=== PATIENT | female | born 2000 | race Caucasian/White ===

== ENCOUNTER 2019-05-12 09:11 | Emergency (ER) | payer MEDICAID ==
[~2019-05-12] VITALS: Ht 165.1 cm; Wt 62.9 kg
[~2019-05-12 09:11] MED LIST: ACET-78 PO; DOCU100C37 PO; IBUP-1780 PO; OXC5T PO; PREN1TAB79 PO
[2019-05-12] MEDS ORDERED: NS IV 1000 ML 1,000 ML IV SCH ×2 (09:30→09:45)
[2019-05-12] MEDS ORDERED: ONDANSETRON 4 MG/2 ML (SDV) Z0FRAN IVP ONE (09:30)
[2019-05-12 09:34] LABS: BACTERIA,URINE MODERATE /HPF; BILIRUBIN,URINE NEGATIVE (NEGATIVE); CLARITY,URINE CLEAR; COLOR,URINE YELLOW; GLUCOSE, URINE (UA) NEGATIVE (NEGATIVE); KETONES,URINE NEGATIVE (NEGATIVE); LEUKOCYTE ESTERASE ,URINE 1+ (NEGATIVE); NITRITE,URINE NEGATIVE (NEGATIVE); PROTEIN,URINE NEGATIVE (NEGATIVE); WBC,URINE 50-100 /HPF
[2019-05-12] MEDS ORDERED: cefTRIAXone FOR IV USE 1,000 MG in WATER (STERILE) FOR INJECTION 10 ML IV ONE (09:45)
--- NOTE | 2019-05-12 10:32 | ED General ---
General Chief Complaint: Abdominal/GI Problems Stated Complaint: VOMITING Nursing Triage Note: Patient presents to ED reporting sent from [facility] for inability to get an IV start. Pt is vomiting x 4 days and is . LMP 03/26/19 Nursing Sepsis Screen: No Definite Risk Source of Information: Patient History of Present Illness Date Seen by Provider: May 12, 2019 Time Seen by Provider: 09:30 Initial Comments Patient is a 18-year-old female who comes to the emergency department today complaining of nausea and vomiting in . The patient is uncertain how many weeks gestation she is. She reports that her last menstrual cycle was in March and she estimates around 6 weeks gestation. Patient was evaluated at a urgent care 2 weeks earlier and she reports her quantitative hCG to be 3000 at that time. Today, she presents with 4 days of persistent nausea and vomiting. Inability to hold down any food or fluids. She does not have a fever. No pelvic pain. No respiratory symptoms. No vaginal bleeding, discharge, or loss of fluid. Allergies and Home Medications Allergies Coded Allergies: No Known Drug Allergies (Unverified , 10/31/18) Home Medications Acetaminophen 500 Mg Tablet, 1,000 MG PO Q6HR Prescribed by: LAVELLE THURMAN on 11/01/18921 Docusate Sodium 100 Mg Capsule, 100 MG PO BID Prescribed by: LAVELLE THURMAN on 11/01/18921 Ibuprofen 800 Mg Tablet, 800 MG PO Q8HR Prescribed by: LAVELLE THURMAN on 11/01/18921 Metoclopramide HCl 10 Mg Tablet, 10 MG PO TID Prescribed by: FRED CLIFTON on 05/12/19 113 Nitrofurantoin Monohyd/M-Cryst 100 Mg Capsule, 1 TAB PO BID Prescribed by: FRED CLIFTON on 05/12/19 1130 Oxycodone Hcl 5 Mg Tab, 5 MG PO Q6H PRN for PAIN-SEVERE Prescribed by: LAVELLE THURMAN on 11/01/18 09 Vit W-Ca,Fe,FA(<1 mg) 1 Each Tablet, 1 EACH PO DAILY, (Reported) Patient Home Medication List Home Medication List Reviewed: Yes Review of Systems Review of Systems Constitutional: no symptoms reported EENTM: no symptoms reported Respiratory: no symptoms reported Cardiovascular: no symptoms reported Gastrointestinal: see HPI Genitourinary: no symptoms reported Musculoskeletal: no symptoms reported Skin: no symptoms reported All Other Systems Reviewed Negative Unless Noted: Yes Past Oosgpnd-Ewsbzq-Yrfdrh Hx Patient Social History Alcohol Use: Denies Use Recreational Drug Use: No Smoking Status: Never a Smoker Recent Foreign Travel: No Contact w/Someone Who Travel: No Recent Infectious Disease Expo: No Recent Hopitalizations: No Physical Abuse: No Sexual Abuse: No Mistreated: No Fear: No Seasonal Allergies Seasonal Allergies: No Past Medical History Surgeries: No Respiratory: No Cardiac: No Neurological: No Last Menstrual Period: Mar 26, 2019 Hx : 2 Hx Para: 1 Sexually Transmitted Disease: No HIV/AIDS: No Genitourinary: No Gastrointestinal: No Musculoskeletal: No Endocrine: No HEENT: No Cancer: No Did You Recieve Any Treatments: No Psychosocial: No Integumentary: No Blood Disorders: No Physical Exam Vital Signs Vital Signs - First Documented 05/12/19 09:15 Temp 36.5 Pulse 70 Resp 18 B/P (MAP) 115/76 (89) Pulse Ox 100 O2 Delivery Room Air Capillary Refill : Less Than 3 Seconds Height, Weight, BMI Height: 5'5.00" Weight: 162lbs. 2.0oz. 73.052734jx; 23.00 BMI Method: General Appearance: No Apparent Distress, WD/WN HEENT: PERRL/EOMI, TMs Normal Neck: Full Range of Motion, Supple Respiratory: Lungs Clear, Normal Breath Sounds Cardiovascular: Regular Rate, Rhythm Gastrointestinal: Non Tender, Soft Extremity: Normal Capillary Refill Neurologic/Psychiatric: Alert, Oriented x3 Skin: Normal Color, Warm/Dry Progress/Results/Core Measures Suspected Sepsis Recent Fever Within 48 Hours: No Infection Criteria Present: None New/Unexplained Altered Menta: No Sepsis Screen: No Definite Risk SIRS Temperature: Pulse: 70 Respiratory Rate: 18 Blood Pressure 115 /76 Mean: 89 Results/Orders Lab Results Laboratory Tests Test 05/12/19 09:20 05/12/19 09:50 Range/Units Urine Color YELLOW Urine Clarity CLEAR Urine pH 7.0 5-9 Urine Specific [place] 1.020 1.016-1.022 Urine Protein NEGATIVE NEGATIVE Urine Glucose (UA) NEGATIVE NEGATIVE Urine Ketones NEGATIVE NEGATIVE Urine Nitrite NEGATIVE NEGATIVE Urine Bilirubin NEGATIVE NEGATIVE Urine Urobilinogen 0.2 < = 1.0 MG/DL Urine Leukocyte Esterase 1+ H NEGATIVE Urine RBC (Auto) NEGATIVE NEGATIVE Urine RBC NONE /HPF Urine WBC 50-100 H /HPF Urine Squamous Epithelial Cells 5-10 /HPF Urine Crystals NONE /LPF Urine Bacteria MODERATE H /HPF Urine Casts NONE /LPF Urine Mucus MODERATE H /LPF Urine Culture Indicated YES Human Chorionic Gonadotropin, Quant 39982 H <5 MIU/ML My Orders Orders - FRED CLIFTON DO Ondansetron Injection (Zofran Injectio (05/12/19 09:30) Ns Iv 1000 Ml (Sodium Chloride 0.9%) (05/12/19 09:30) Urinalysis (05/12/19 09:20) Urine Culture (05/12/19 09:20) Abo Rh Type (05/12/19 09:35) Hcg,Quantitative (05/12/19 09:35) Ns Iv 1000 Ml (Sodium Chloride 0.9%) (05/12/19 09:45) Ceftriaxone For Iv Use (Rocephin For I (05/12/19 09:45) Urine Bedside (05/12/19 10:36) Medications Given in ED Current Medications Medications Dose Ordered Sig/Luan Route Start Time Stop Time Status Last Admin Dose Admin Ceftriaxone Sodium 1000 mg/ Sterile Water 10 ml @ 200 mls/hr ONCE ONCE IV 05/12/19 09:45 05/12/19 09:47 DC 05/12/19 10:05 200 MLS/HR Ondansetron HCl 4 mg ONCE ONCE IVP 05/12/19 09:30 05/12/19 09:31 DC 05/12/19 10:05 4 MG Vital Signs/I&O 05/12/19 09:15 Temp 36.5 Pulse 70 Resp 18 B/P (MAP) 115/76 (89) Pulse Ox 100 O2 Delivery Room Air Capillary Refill : Less Than 3 Seconds Blood Pressure Mean: 89 Progress Note : Time: 09:30 Progress Note Patient is seen and examined. Overall, she is in no distress. She does complain of mild nausea symptoms at this time. She does have dry mucous membranes. In the ER, we will verify and also send a quantitative level. Will give Zofran and IV fluids. Bedside ultrasound is attempted on arrival to the ER. With this study, I was unable to visualize any gestational sac or fetus although the bladder was empty. Will attempt repeat bedside ultrasound after IV fluid hydration is complete. Urinalysis is collected and results are present from urgent care visit earlier today. This was a contaminated sample with multiple squamous epithelial cells but also with significant pyuria. Will get a dose of Rocephin in the ER. 11:40: Patient is now feeling improved. Nausea and headache are both resolved. Status post 2 L normal saline. Repeat ultrasound does reveal a gestational sac that is intrauterine. Could not appreciate fetus or heart tones. This is likely secondary to bedside nature of ultrasound and quality of ultrasound obtained. Patient's quantitative hCG comes back at over 35,000 which is reassuring. She does not have pelvic pain, cramps, bleeding. No recent today to suspect miscarriage. Patient's blood type was confirmed to be A+ from review of medical record. She already has close follow-up scheduled 3 days from now with OB and repeat ultrasound can be obtained at that time. Patient was discharged home and given some Reglan as well as Macrobid for treatment of UTI. Patient was advised to come back to the ER for any new or worsening symptoms. She was agreeable to this plan of care. She is already taking vitamins. Departure Impression Primary Impression: Nausea and vomiting during Disposition: 01 HOME, SELF-CARE Condition: Improved Departure-Patient Inst. Referrals: NO,LOCAL PHYSICIAN (PCP/Family) Primary Care Physician Scripts Nitrofurantoin Monohyd/M-Cryst (Macrobid 100 mg Capsule) 100 Mg Capsule 1 TAB PO BID for 5 Days, #10 TAB Prov: FRED CLIFTON DO 05/12/19 Metoclopramide HCl (Reglan) 10 Mg Tablet 10 MG PO TID for Nausea/Vomiting, #10 TAB Prov: FRED CLIFTON DO 05/12/19 FRED CLIFTON DO May 12, 2019 10:32
[2019-05-12] MEDS ORDERED: METO-310 PO (11:30)
[2019-05-12] MEDS ORDERED: NITR-65 PO (11:30)
[2019-05-12 11:41] VITALS: BP 104/60
--- NOTE | 2019-05-12 11:41 | NUR ---
Pt discharged to home after review of home instructions verbalized as understood. Pt was given her HCG Quant number and her RHO prior blood type result A+. Pt to see Dr Bowling 05/15/19
--- OUTSIDE RECORDS SUMMARY | 2019-05-15 22:48 | XMS REPORT | Continuity of Care Document ---
Author Organization Unknown Address Unknown Phone Unavailable Allergies Active Description Code Type Severity Reaction Onset Reported/Identified Relationship to Patient Clinical Status Yes No Known Drug Allergies [id number] Drug Allergy Unknown N/A 10/31/2018 Medications There is no data. Problems Date Dx Coded Attending Type Code Diagnosis Diagnosed By 11/01/2018 LAVELLE THURMAN DO, Ot O70.2 0 THIRD DEGREE PERINEAL LACERATION DURING 11/01/2018 LAVELLE THURMAN DO Ot Z23 ENCOUNTER FOR IMMUNIZATION 11/01/2018 LAVELLE THURMAN DO Ot Z37.0 SINGLE LIVE 11/01/2018 LAVELLE THURMAN DO Ot Z3A.3 8 38 WEEKS GESTATION OF Procedures Code Description Performed By Per deven On [id number] RE PAIR ANAL SPHINCTER, OPEN APPROACH 10/31/2018 [id number] DI VISION OF FEMALE PERINEUM, EXTERNAL AP 10/31/2018 [id number] DE LIVERY OF PRODUCTS OF CONCEPTION, EXTE 10/31/2018 Results Test Result Range Complete blood count (CBC) with automate d white blood cell (WBC) differential - 10/31/18 07:30 Blood leukocytes automated count (number/volume) 8.8 10*3/uL 4.3-11.0 Blood erythrocytes automated count (number/volume) 4.09 10*6/uL 4.35-5.85 Venous blood hemoglobin measurement (mass/volume) 11.1 g/dL 11.5-16.0 Blood hematocrit (volume fraction) 34 % 35-52 Automated erythrocyte mean corpuscular volume 83 [ foz_us] 80-99 Automated erythrocyte mean corpuscular h emoglobin (mass per erythrocyte) 27 pg 25-34 Automated erythrocyte mean corpuscular h emoglobin concentration measurement (mass/volume) 33 g/dL 32-36 Automated erythrocyte distribution width ratio 15. 1 % 10.0- 14.5 Automated blood platelet count (count/volume) 208 10*3/uL 130-400 Automated blood platelet mean volume measurement 11.3 [foz_us] 7.4-10.4 Automated blood neutrophils/100 leukocytes 74 % 42-75 Automated blood lymphocytes/100 leukocytes 19 % 12-44 Blood monocytes/100 leukocytes 7 % 0-12 Automated blood eosinophils/100 leukocytes 0 % 0-10 Automated blood basophils/100 leukocytes 0 % 0-10 Blood neutrophils automated count (number/volume) 6.5 10*3 1.8-7.8 Blood lymphocytes automated count (number/volume) 1.6 10*3 1.0-4.0 Blood monocytes automated count (number/volume) 0. 6 10*3 0.0-1.0 Automated eosinophil count 0.0 10*3/uL 0 .0-0.3 Automated blood basophil count (count/volume) 0.0 10*3/uL 0.0-0.1 Blood type T Indirect antibody screen pa isatu - 10/31/18 07:30 WRISTBAND NUMBER [id number] NRG ABO+Rh group AP NRG Blood group antibody screen NEGATIVE NR G Complete blood count (CBC) with automate d white blood cell (WBC) differential - 11/01/18 05:21 Blood leukocytes automated count (number/volume) 11.7 10*3/uL 4.3-11.0 Blood erythrocytes automated count (number/volume) 2.96 10*6/uL 4.35-5.85 Venous blood hemoglobin measurement (mass/volume) 8.1 g/dL 11.5-16.0 Blood hematocrit (volume fraction) 25 % 35-52 Automated erythrocyte mean corpuscular volume 85 [ foz_us] 80-99 Automated erythrocyte mean corpuscular h emoglobin (mass per erythrocyte) 27 pg 25-34 Automated erythrocyte mean corpuscular h emoglobin concentration measurement (mass/volume) 32 g/dL 32-36 Automated erythrocyte distribution width ratio 14. 9 % 10.0- 14.5 Automated blood platelet count (count/volume) 194 10*3/uL 130-400 Automated blood platelet mean volume measurement 11.4 [foz_us] 7.4-10.4 Automated blood neutrophils/100 leukocytes 72 % 42-75 Automated blood lymphocytes/100 leukocytes 21 % 12-44 Blood monocytes/100 leukocytes 6 % 0-12 Automated blood eosinophils/100 leukocytes 0 % 0-10 Automated blood basophils/100 leukocytes 0 % 0-10 Blood neutrophils automated count (number/volume) 8.4 10*3 1.8-7.8 Blood lymphocytes automated count (number/volume) 2.5 10*3 1.0-4.0 Blood monocytes automated count (number/volume) 0. 8 10*3 0.0-1.0 Automated eosinophil count 0.0 10*3/uL 0 .0-0.3 Automated blood basophil count (count/volume) 0.0 10*3/uL 0.0-0.1 Complete urinalysis with reflex to cultu re - 05/12/19 09:20 Urine color determination YELLOW NRG Urine clarity determination CLEAR NR G Urine pH measurement by test strip 7.0 5-9 Specific gravity of urine by test strip 1.020 1.016-1.022 Urine protein assay by test strip, semi-quantitative NEGATIVE NEGATIVE Urine glucose detection by automated test strip NE GATIVE NEGATIVE Erythrocytes detection in urine sediment by light micr oscopy NEGATIVE NEGATIVE Urine ketones detection by automated test strip NE GATIVE NEGATIVE Urine nitrite detection by test strip NEGATIVE NEGATIVE Urine total bilirubin detection by test strip NEGA TIVE NEGATIVE Urine urobilinogen measurement by automated test strip (mass/volume) 0.2 mg/dL < = 1.0 Urine leukocyte esterase detection by dipstick 1+ NEGATIVE Automated urine sediment erythrocyte cou nt by microscopy (number/high power field) NONE NRG Automated urine sediment leukocyte count by microscopy (number/high power field) [HPF] NRG Bacteria detection in urine sediment by light microsco py MODERATE NRG Squamous epithelial cells detection in u rine sediment by light microscopy 5-10 NRG Crystals detection in urine sediment by light microsco py NONE NRG Casts detection in urine sediment by light microscopy NONE NRG Mucus detection in urine sediment by light microscopy MODERATE NRG Complete urinalysis with reflex to culture YES NRG Bacterial urine culture - 05/12/19 09:20 Bacterial urine culture [id number] NRG COLONY COUNT >100,000/ML NRG FTX;REPORTABLE SUSCEPTIBILITY REPORTED 05/13 10:20 NRG FREE TEXT ENTRY 2 PRELIM RAPID ID BY VCP 05-13-19,13 22 NRG FREE TEXT ENTRY 3 RML CONFIRMED ID 05/13 06:06 NRG Dirithromycin susceptibility test by dis k diffusion - 05/12/19 09:20 Gentamicin susceptibility test by minimum inhibitory c oncentration <= NRG Trimethoprim/sulfamethoxazole susceptibi lity test by minimum inhibitoryconcentration <= NRG Levofloxacin susceptibility test by minimum inhibitory concentration <= NRG Ampicillin susceptibility test by minimum inhibitory c oncentration <= NRG Cefazolin susceptibility test by minimum inhibitory co ncentration <= NRG Ceftriaxone susceptibility test by minimum inhibitory concentration <= NRG Ciprofloxacin susceptibility test by minimum inhibitor y concentration <= NRG Meropenem susceptibility test by minimum inhibitory co ncentration <= NRG Nitrofurantoin susceptibility test by mi nimum inhibitory concentration <= NRG Amoxicillin and clavulanate potassium susc NARCISA <= NRG Serum or plasma choriogonadotropin measu rement (units/volume) - 05/12/19 09:50 Serum or plasma choriogonadotropin measurement (units/ volume) 82117 m[iU]/mL <5 Encounters ACCT No. Visit Date/Time Discharge Status Pt. Type Provider Facility Loc./Unit Complaint [id number] 05/12/2019 09:13:00 020 11:41:00 DIS Emergency FRED CLIFTON DO [facility] ER FS VOMITING [id number] 10/31/2018 06:42:00 019 16:30:00 DIS Inpatient LAVELLE THURMAN DO [facility] LDRP LABOR
== END 2019-05-12 11:41 | disposition home or self-care (01) ==
LOC: EDUNIT# 09:11 → ER FS 09:13
DX: O21.0 Mild hyperemesis gravidarum (principal); Z3A.01 Less than 8 weeks gestation of pregnancy
CPT/HCPCS: 36415; 81000; 84702; 84703; 87077; 87088; 87186

== ENCOUNTER → 2019-12-06 | Outpatient (CLI) | payer MEDICAID ==
[~2019-12-06] MED LIST changes: +METO-310 PO; +NITR-65 PO
== END ==
LOC: LABNPT 14:56
PROVIDERS: ATTEND Family Medicine
DX: Z34.83 Encounter for supervision of other normal pregnancy, third trimester (principal); Z3A.00 Weeks of gestation of pregnancy not specified
CPT/HCPCS: 87081

== ENCOUNTER 2019-12-27 00:33 | Inpatient (IN) | payer MEDICAID ==
[2019-12-27] VITALS (15 sets, daily range): BP systolic 100–128; BP diastolic 58–78
[~2019-12-27] VITALS: Ht 165.1 cm; Wt 73.7 kg
--- NOTE | 2019-12-27 00:40 | NUR ---
JEANA MCADAMS presented to unit via W/C from home/ED, accompanied by Stanley, nursing supervisor detasseling crew, with c/o CONTRACTIONS,PRESSURE,WATER BROKE. JEANA MCADAMS weighed, gowned, voided, and to bed. EFHM and TOCO applied, VS taken. JEANA MCADAMS oriented to bed controls, call light, TV, heat, and A/C controls.
[2019-12-27] MEDS ORDERED: D5 LR IV SOLUTION 1,000 ML IV ONE (00:54)
[2019-12-27] MEDS ORDERED: D5 LR IV SOLUTION 1,000 ML IV SCH (01:02)
[2019-12-27] MEDS ORDERED: MINERAL OIL CONCENTRATE 99.9% 15 ML UDC TOP PRN (01:15)
[2019-12-27 01:33] LABS: BASOPHILS % (AUTO) 0 % (0-10); EOSINOPHILS % (AUTO) 0 % (0-10); HEMATOCRIT 29 % (35-52); HEMOGLOBIN 8.8 g/dL (11.5-16.0); LYMPHOCYTES # (AUTO) 2.2 10^3/uL (1.0-4.0); LYMPHOCYTES % (AUTO) 18 % (12-44); MEAN CORPUSCULAR HEMOGLOBIN 23 pg (25-34); MEAN CORPUSCULAR HGB CONC 30 g/dL (32-36); MEAN CORPUSCULAR VOLUME 75 fL (80-99); MEAN PLATELET VOLUME 10.8 fL (9.0-12.2); MONOCYTES # (AUTO) 0.7 10^3/uL (0.0-1.0); MONOCYTES % (AUTO) 6 % (0-12); NEUTROPHILS # (AUTO) 8.8 10^3/uL (1.8-7.8); NEUTROPHILS % (AUTO) 74 % (42-75); PLATELET COUNT 182 10^3/uL (130-400); WHITE BLOOD COUNT 11.8 10^3/uL (4.3-11.0)
--- NOTE | 2019-12-27 01:39 | History & Physical-OB ---
OB - Chief Complaint & HPI Date/Time Date of Admission: Date of Admission: Dec 27, 2019 at 00:51 Date seen by a Provider: Dec 27, 2019 Time Seen by a Provider: 01:25 Chief Complaint/History OB-Reason for Admission/Chief: Onset of Labor Hx : 2 Hx Para: 1 Gestational Age in Weeks: 39 Gestational Age in Days: 2 Admission Nurse Assessment Rev: Yes Allergies and Home Medications Allergies Coded Allergies: No Known Drug Allergies (Unverified , 10/31/18) Home Medications Vit W-Ca,Fe,FA(<1 mg) 1 Each Tablet, 1 EACH PO DAILY, (Reported) Patient Home Medication List Home Medication List Reviewed: Yes OB - History Hx of Present Care: Yes Ultrasounds: Normal mid trimester US Obstetrical Complications: None Medical Complications: None Obstetrical History Hx Termination: No Hx Multiple Gestation: No Hx Stillbirth: No Hx Complication: No Hx Induced Hypertens: No Hx Maternal Gestational Diabet: No Patient Past Medical History Previously healthy Social History/Family History HIV/AIDS: No Recent Infectious Disease Expo: No Sexually Transmitted Disease: No Alcohol Use: Denies Use Recreational Drug Use: No OB - Admission Exam Physical Exam HEENT: NCAT Heart: Rhythm Normal Lungs: Clear Abdomen: Gravid Extremities: Normal Reflexes: Normal Cervical Dilatation: 7cm Effacement: 100% Station: -2 Membranes: Ruptured Amniotic Fluid: Clear Heart Rate: 130's Accelerations: Accelerations Present Decelerations: No Decelerations Short Term Variability: Present Direct Response Consultant Variability: Average (6-25) Contractions on Admission: < 5 Minutes Apart Labs Laboratory Tests Test 12/27/19 01:00 Range/Units OB - Assessment/Plan/Diagnosis Assessment Assessment: active labor Admission Dx Active labor at 39 2/7 wga. Admission Status: Inpatient Order (span 2 midnights) Reason for Inpatient Admission: Active labor. Plan Plan: Expectant Management Other Plan GBS negative. Will try to get epidural for pain. SROM. KAUSHAL ALDANA MD Dec 27, 2019 01:39
[2019-12-27] MEDS ORDERED: fentaNYL 2 mcg/ml BUPIVA 0.125 100 ML ONE (01:44)
[2019-12-27] MEDS ORDERED: WITCH HAZEL(TUCKS) 40 EA JAR TOP PRN (01:45)
[2019-12-27] MEDS ORDERED: MEASLES,MUMPS,RUBELLA 1 EA INJ SQ ONE (01:45)
[2019-12-27] MEDS ORDERED: TETANUS,DIPTH,PERTUSS P/F (BOOSTRIX) 0.5 ML VIAL IM ONE (01:45)
[2019-12-27] MEDS ORDERED: BENZOCAINE/MENTHOL (DERMOPLAST) 60 ML CAN TP PRN (01:45)
[2019-12-27] MEDS ORDERED: fentaNYL INJECTION 100 MCG/2 ML AMP ONE (01:59)
[2019-12-27] MEDS ORDERED: LIDOCAINE PF 2% 5 ML (XYLOCAINE) VIAL ONE (01:59)
[2019-12-27] MEDS ORDERED: BUPIVACAINE 0.25% 30 ML (SENSORCAINE) VIAL ONE (01:59)
[2019-12-27] MEDS ORDERED: LIDOCAINE/EPI 2% 1:200,00 (XYLOCAINE) 10 ML VIAL ONE (02:12)
--- NOTE | 2019-12-27 02:27 | NUR ---
0227: Delivery of viable female infant in labor room. warmed dried and stimulated and to mom's chest. Mom request that infant be taken to warmer at this time. 0331: Placenta delivered. Pitocin wide open. 0235: Pt. up in [facility] for repair of second degree midline tear. 0245: Pericare provided to pt and out of [facility]. Fundus massaged. Fundus firm. No clots noted. Minimal bleeding noted. 0300: Fundus massaged. Fundus one under umbilicus and firm with massage. Moderate bleeding noted. No clots expressed. 0315: Fundus massaged. Fundus one under umbilicus and firm. Scant bleeding noted. No clots expressed. 0330: Fundus massaged. Fundus one under umbilicus and firm. Minimal bleeding noted. No clots expressed. 0345: Fundus massaged. Fundus one under umbilicus and firm. Minimal bleeding noted. No clots expressed. Pt. states that she is tired and lays back to sleep.
[2019-12-27] MEDS: OXYTOCIN PRE-MIX DRIP 500 ML IV SCH ×2 (02:36→03:04)
--- NOTE | 2019-12-27 02:51 | OB Labor & Delivery Record ---
Vag Delivery Note Vag Delivery Note Date of Delivery: 12/27/19 Preoperative Diagnosis: Tyrel Cordero is a (19 /Para 2 / 1,Gestational Age (wks)39with [2 days] Postoperative Diagnosis: Same Surgeon: KAUSHAL ALDANA [employer] Man: [none] Anesthesia: [none] Delivery Type: [] Findings: [] Viable [female] , apgars [8/9], weight [7 pounds 13 ounces] Lacerations: Intact placenta with 3 vessel cord. One nuchal cord loose delivered through. Estimated Blood Loss: [400] ml Complications: None Condition: Stable Description of Procedure: The patient is a 19 year old female who presented [in labor]. She was admitted and informed consent was obtained. Her labor course was remarkable for [nothing] She progressed to complete dilatation and began to push. She was then set up for delivery. The 's head was delivered atraumatically in the [OA] position. The shoulders and remainder of the infant's body were then delivered without difficulty. Upon delivery, the head was held below the level of the perineum and the mouth and nares were bulb suctioned. The cord was doubly clamped and cut after 60 seconds on maternal abdomen by father of the baby. An intact placenta with 3-vessel cord delivered via Shahnaz and there was found to be minimal bleeding.~ Vigorous fundal massage was performed and the fundus was found to be firm. IV oxytocin was given. Examination of the vagina and perineum revealed a [2nd degree perineal] laceration repaired in the usual fashion with 3-0 vicryl suture. Following the repair, sponge, instrument and needle counts were correct. Mom and baby were both in stable condition in the labor suite. Vitals - Labs Vital Signs - I&O Vital Signs Date Time Temp Pulse Resp B/P (MAP) Pulse Ox O2 Delivery O2 Flow Rate FiO2 12/27/19 00:53 36.8 105 18 98 Room Air Labs Laboratory Tests 12/27/19 01:00: White Blood Count 11.8H, Red Blood Count 3.86, Hemoglobin 8.8L, Hematocrit 29L, Mean Corpuscular Volume 75L, Mean Corpuscular Hemoglobin 23L, Mean Corpuscular Hemoglobin Concent 30L, Red Cell Distribution Width 16.2H, Platelet Count 182, Mean Platelet Volume 10.8, Immature Granulocyte % (Auto) 1, Neutrophils (%) (Auto) 74, Lymphocytes (%) (Auto) 18, Monocytes (%) (Auto) 6, Eosinophils (%) (Auto) 0, Basophils (%) (Auto) 0, Neutrophils # (Auto) 8.8H, Lymphocytes # (Auto) 2.2, Monocytes # (Auto) 0.7, Eosinophils # (Auto) 0.0, Basophils # (Auto) 0.0, Immature Granulocyte # (Auto) 0.1 KAUSHAL ALDANA MD Dec 27, 2019 02:51
--- NOTE | 2019-12-27 04:15 | NUR ---
0415: Fundus massaged. Fundus is firm and at umbilicus. Minimal bleeding and no clots noted. 0445: Fundus massaged. Fundus is firm and one above umbilicus. Minimal bleeding and no clots noted. Pt. states that she needs to get up and use the restroom. 0450: Pt up to bathroom at the time. Pt. voided large amount. Pericare taught to pt. Clean pad, underwear, and gown put on. Pt. tolerated well. 0455: Pt transferred to wheelchair and pt then transferred to room.
[2019-12-27] MEDS: IBUPROFEN 600 MG (MOTRIN) TAB PO SCH ×3 (04:58→17:14)
[2019-12-27] MEDS: ACETAMINOPHEN 500 MG TAB (TYLENOL) PO SCH ×3 (04:59→22:11)
[2019-12-27] MEDS ORDERED: CATHETER FLUSH 10 ML SYR IV SCH ×2 (06:00)
[2019-12-27] MEDS ORDERED: FLU QUADRIvalent (3YOA+) 60 mcg/0.5 ml 2020-21 (AFLURIA) IM ONE (07:15)
[2019-12-27] MEDS: DOCUSATE SODIUM 100 MG (COLACE) CAP PO SCH ×2 (08:56→20:28)
--- NOTE | 2019-12-27 12:18 | Discharge Summary ---
Discharge Inst-[facility] Reconcile Patient Problems Problems Reviewed?: Yes Follow Up/Instructions Goal/Follow Up: Dr. Aldana in 6 weeks. Activity Activity: Activity as Tolerated Driving Instructions: You May Drive NO SMOKING: NO SMOKING Nothing Inside Vagina: No Douching, No [place], No Tampons Diet Discharge Diet: No Restrictions Symptoms to Report to : Fever Over 101 Degrees F, Vaginal Bleeding Increase For Any Problems or Questions: Contact Your Physician KAUSHAL ALDANA MD Dec 27, 2019 12:18
[2019-12-27] MEDS ORDERED: IBUP-844 PO (12:20)
[2019-12-28 00:15] VITALS: BP 104/55
[2019-12-28] MEDS: IBUPROFEN 600 MG (MOTRIN) TAB PO SCH ×2 (00:24→05:42)
[2019-12-28] MEDS: ACETAMINOPHEN 500 MG TAB (TYLENOL) PO SCH (05:42)
[2019-12-28 06:00] VITALS: BP 98/53
[2019-12-28 06:43] LABS: BASOPHILS # (AUTO) 0.1 10^3/uL (0.0-0.1); BASOPHILS % (AUTO) 1 % (0-10); EOSINOPHILS # (AUTO) 0.1 10^3/uL (0.0-0.3); EOSINOPHILS % (AUTO) 1 % (0-10); HEMATOCRIT 27 % (35-52); HEMOGLOBIN 7.9 g/dL (11.5-16.0); LYMPHOCYTES # (AUTO) 2.7 10^3/uL (1.0-4.0); LYMPHOCYTES % (AUTO) 28 % (12-44); MEAN CORPUSCULAR HEMOGLOBIN 22 pg (25-34); MEAN CORPUSCULAR HGB CONC 30 g/dL (32-36); MEAN CORPUSCULAR VOLUME 76 fL (80-99); MEAN PLATELET VOLUME 11.8 fL (9.0-12.2); MONOCYTES # (AUTO) 0.7 10^3/uL (0.0-1.0); MONOCYTES % (AUTO) 7 % (0-12); NEUTROPHILS # (AUTO) 6.1 10^3/uL (1.8-7.8); NEUTROPHILS % (AUTO) 63 % (42-75); PLATELET COUNT 161 10^3/uL (130-400); WHITE BLOOD COUNT 9.7 10^3/uL (4.3-11.0)
[2019-12-28] MEDS ORDERED: FERR325T18 PO (07:38)
--- NOTE | 2019-12-28 07:51 | Postpartum Progress Note ---
Note Note Day # 1 Subjective: Patient is without complaints. Ambulating, voiding. Tolerating a regular diet without nausea or vomiting. Normal lochia. Pain is well controlled with oral pain medications. Objective: Physical Exam: General - Alert and oriented, no apparent distress Abdomen - Soft, appropriately tender to palpation, non-distended, fundus firm at umbilicus Extremities - no edema, negative Martha's bilaterally Assessment: PPD 1 NVD Acute blood loss anemia Plan: Routine care. Encourage breast feeding. Encourage ambulation. Ferrous sulfate supplementation. Plan for discharge today Vitals - Labs Vital Signs - I&O Vital Signs Date Time Temp Pulse Resp B/P (MAP) Pulse Ox O2 Delivery O2 Flow Rate FiO2 12/28/19 06:00 36.6 62 18 98/53 (68) Room Air 12/28/19 00:15 36.5 61 18 104/55 (71) Room Air 12/27/19 20:30 37.2 75 18 100/65 (77) 98 Room Air 12/27/19 16:14 36.9 73 18 115/63 (80) 100 Room Air 12/27/19 12:15 36.2 76 18 128/62 (84) 98 Room Air 12/27/19 08:57 36.6 71 18 109/61 (77) 99 Room Air Labs Laboratory Tests 12/28/19 05:58: White Blood Count 9.7, Red Blood Count 3.53L, Hemoglobin 7.9L, Hematocrit 27L, Mean Corpuscular Volume 76L, Mean Corpuscular Hemoglobin 22L, Mean Corpuscular Hemoglobin Concent 30L, Red Cell Distribution Width 16.3H, Platelet Count 161, Mean Platelet Volume 11.8, Immature Granulocyte % (Auto) 1, Neutrophils (%) (Auto) 63, Lymphocytes (%) (Auto) 28, Monocytes (%) (Auto) 7, Eosinophils (%) (Auto) 1, Basophils (%) (Auto) 1, Neutrophils # (Auto) 6.1, Lymphocytes # (Auto) 2.7, Monocytes # (Auto) 0.7, Eosinophils # (Auto) 0.1, Basophils # (Auto) 0.1, Immature Granulocyte # (Auto) 0.1 SUMANTH CAIN DO Dec 28, 2019 07:51
[2019-12-28] MEDS ORDERED: FERROUS SULF 325 MG (IRON) TAB PO SCH (08:00)
[2019-12-28 08:20] VITALS: BP 114/70
[2019-12-28] MEDS: DOCUSATE SODIUM 100 MG (COLACE) CAP PO SCH (08:24)
--- NOTE | 2019-12-28 09:30 | NUR ---
Discharge instructions given to pt at this time. Printed RX place din red folder, Other RX called to preferred pharmacy. Pt denies questions. Pt and SO understand that they are not to leave until after DC instructions are given for . Pt understands she is no longer a pt.
== END 2019-12-28 12:00 | disposition home or self-care (01) | DRG 806 ==
LOC: WSo 00:33 → LDRP 00:34 → WSo 00:51 → LDRP 05:00
PROVIDERS: ADMIT Family Medicine; ATTEND Family Medicine
PROC: 10E0XZZ Delivery of Products of Conception, External Approach (ICD-10-PCS; principal; 2019-12-27)
PROC: 0KQM0ZZ Repair Perineum Muscle, Open Approach (ICD-10-PCS; 2019-12-27)
DX: O70.1 Second degree perineal laceration during delivery (principal); D62 Acute posthemorrhagic anemia; Z37.0 Single live birth; Z3A.39 39 weeks gestation of pregnancy; O90.81 Anemia of the puerperium
CPT/HCPCS: 36415; 85025; 86850; 86900; 86901; 90686; 90715; 99212

== ENCOUNTER 2021-06-11 05:40 | Outpatient (CLI) | payer MEDICAID ==
[~2021-06-11] VITALS: Ht 165.1 cm; Wt 72.6 kg
[~2021-06-11 05:40] MED LIST changes: +FERR325T18 PO; +IBUP-844 PO
[2021-06-11] MEDS ORDERED: MEDR150V IM (08:52)
== END 2021-06-11 11:15 | disposition home or self-care (01) ==
LOC: PREOP 05:40
PROVIDERS: ATTEND Surgery
DX: Z01.818 Encounter for other preprocedural examination (principal)

== ENCOUNTER 2021-06-22 08:31 | Day surgery (SDC) | payer MEDICAID ==
[~2021-06-22] VITALS: Ht 165.1 cm; Wt 72.6 kg
[~2021-06-22 08:31] MED LIST changes: +MEDR150V IM
[2021-06-22] MEDS ORDERED: LACTATED RINGERS 1,000 ML IV ONE (08:39)
[2021-06-22] MEDS ORDERED: LACTATED RINGERS 1,000 ML IV STA (08:44)
[2021-06-22 08:45] VITALS: BP 108/78
[2021-06-22] MEDS ORDERED: HURRICAINE EXT TUBE (BENZOCAINE) XX PRN (08:45)
--- NOTE | 2021-06-22 09:42 | Progress Note-Pre Operative ---
Pre-Operative Progress Note H&P Reviewed The H&P was reviewed, patient examined and no changes noted. Time Seen by Provider: 09:41 Date H&P Reviewed: Jun 22, 2021 Time H&P Reviewed: 09:41 Pre-Operative Diagnosis: Hematochezia AMY RUIZ DO Jun 22, 2021 09:42
[2021-06-22] MEDS ORDERED: MIDAZOLAM 2 MG/2 ML (VERSED) VIAL ONE (09:46)
[2021-06-22] MEDS ORDERED: PROPOFOL INJECTION 50 ML IV ONE (09:46)
[2021-06-22 10:10] VITALS: BP 99/69
--- NOTE | 2021-06-22 10:13 | Progress Note-Post Operative ---
Post-Operative Progess Note Surgeon (s)/Manager Functional (s) Surgeon AMY RUIZ DO Manager Functional: none Pre-Operative Diagnosis Hematochezia Post-Operative Diagnosis Moderate to Severe Colitis Fecal impaction Procedure & Operative Findings Date of Procedure 06/22/21 Procedure Performed/Findings Flex Sigmoidoscopy with biopsy PROCEDURE NOTE: After informed consent was obtained, the patient was brought to the endoscopy suite, placed in bed in left lateral decubitus position. She was administered IV sedation by the THERMAL SURFACING MACHINE OPERATOR who then monitored her vitals the entire time, heart rate, blood pressure and pulse ox and the scope was inserted. Immediately upon entering saw moderate to severe Colitis. Also, unfortunately found fecal impaction with large formed stool in the colon and liquid. Tried to push past this and got about to the splenic flexure. Still found large pieces of fecal material and elected to stop here. Did a cold biopsy, mucosa here looked barrie. Pulled back down the descending colon and into the sigmoid. Did a biopsy here and then into the rectal vault. Took two biopsies in the rectum and retroflexed the scope. Took a picture of the internal hemorrhoids. The patient tolerated the procedure. She was recovered in endoscopy suite. Anesthesia Type IV sedation by anesthesia Estimated Blood Loss Estimated blood loss (mL): scant Specimens/Packing Specimens Removed desc colon bx sigmoid bx rectal bx AMY RUIZ DO Jun 22, 2021 10:13
[2021-06-22 10:14] VITALS: BP 99/69
--- NOTE | 2021-06-22 10:14 | Endoscopy Discharge Instruct ---
Endo Procedure/Findings Findings 1.: Colitis 2.: Internal Hemorrhoids Discharge Instructions - Activity: You might feel a little sleepy until tomorrow. This is due to the medicine you received to relax you. Until tomorrow, you should: NOT drive a car, operate machinery or power tools. NOT drink any alcoholic beverages. NOT make any important decisions or sign importortant papers. Do not return to work until tomorrow, unless otherwise instructed. Resume previous activities tomorrow. Diet: Start by taking liquids. If you tolerate liquids, advance to solid food. 1.: Other Recommendation (colonoscopy in 1-2 months) Notify Physician - If you experience excessive bleeding, unusual abdominal pain, fever, or chest pain, contact your doctor immediately. AMY RUIZ DO Jun 22, 2021 10:14
[2021-06-22 10:34] VITALS: BP 108/82
--- NOTE | 2021-06-22 14:14 | Anesthesia-General Post-Op ---
MAC Patient Condition Mental Status/LOC: Same as Preop Cardiovascular: Satisfactory Nausea/Vomiting: Absent Respiratory: Satisfactory Pain: Controlled Complications: Absent Post Op Complications Complications None Follow Up Care/Instructions Patient Instructions None needed. Anesthesiology Discharge Order Discharge Order Patient was doing well this morning after the procedure with no complaints, stable vital signs, no apparent adverse anesthesia problems. CARRINGTON FELICIANO DO Jun 22, 2021 14:14
== END 2021-06-22 10:40 | disposition home or self-care (01) ==
LOC: ENDO 08:31
PROVIDERS: ATTEND Surgery
DX: K52.9 Noninfective gastroenteritis and colitis, unspecified (principal); K56.41 Fecal impaction; K64.8 Other hemorrhoids
CPT/HCPCS: 84703